=== PATIENT | female | born 1995 | race Caucasian/White ===

== ENCOUNTER 2021-01-03 01:36 | Emergency (ER) | payer SELFPAY ==
[~2021-01-03] VITALS: Ht 160 cm; Wt 77.3 kg
[2021-01-03 01:47] VITALS: BP 119/80
--- NOTE | 2021-01-03 01:53 | NUR ---
pt received information for MH assistance in the area
== END 2021-01-03 01:57 | disposition home or self-care (01) ==
LOC: ER 01:36
DX: F32.9 Major depressive disorder, single episode, unspecified (principal); R45.851 Suicidal ideations
CPT/HCPCS: 99283